=== PATIENT | female | born 1935 | race Caucasian/White ===

== ENCOUNTER → 2018-01-14 | Outpatient (CLI) | payer MEDICARE, OTHER ==
[~2018-01-14] MED LIST: ALIGN10.5 MG PO; AMARYL2 M1 PO; BENAZEPRIL HCL20 MG PO; CHLORTHALIDONE25 MG PO; CO Q-1010 MG PO; COQ-10100 MG PO; DICYCLOMINE HCL10 MG PO; ELIQUIS5 MG PO; ERYTHROMYCIN250 M1 PO; ESTRADIOL 1 MG T1 M1 PO; GLUCAGON EMERGEN1 MG IM; LOMOTIL TABLET1 EACH PO; MAGOX 400400 MG PO; METFORMIN HCL500 MG PO; NEPHROCAPS SOFT1 CAP PO; NORCO 5-325 TA1 EAC1 PO; NORVASC5 MG PO; OMEPRAZOLE40 MG PO; PIOGLITAZONE15 MG PO; PRAVACHOL20 MG PO; PREDNISOLONE 5 M5 M1 PO; PREDNISONE 5 MG5 M1 PO; PREDNISONE 5 MG5 MG PO; PROTONIX40 M1 PO; REFRESH OPTIVE15 ML OTIC; SYNTHROID75 MCG PO; TRAMADOL 50 MG50 MG PO; VIT B; VITAMIN B-12500 MCG PO; VITAMIN D3400 UNIT PO; XANAX 0.25 MG0.25 MG PO
== END ==
LOC: M.NUC 11:41
DX: K31.84 Gastroparesis (principal); R14.0 Abdominal distension (gaseous); R68.81 Early satiety

== ENCOUNTER → 2018-01-20 | Outpatient (CLI) | payer MEDICARE, OTHER | LOC: M.MRI 13:01 | DX: S43.401A Unspecified sprain of right shoulder joint, initial encounter (principal); M25.511 Pain in right shoulder; M19.011 Primary osteoarthritis, right shoulder; X58.XXXA Exposure to other specified factors, initial encounter; Y93.89 Activity, other specified; Y92.89 Other specified places as the place of occurrence of the external cause; Y99.8 Other external cause status ==

== ENCOUNTER 2018-02-04 15:53 | Inpatient (IN) | payer MEDICARE, OTHER ==
[~2018-02-04] VITALS: Ht 162.6 cm; Wt 98.0 kg
[~2018-02-04 15:53] MED LIST changes: -ALIGN10.5 MG PO; -CHLORTHALIDONE25 MG PO; -COQ-10100 MG PO; -DICYCLOMINE HCL10 MG PO; -ERYTHROMYCIN250 M1 PO; -GLUCAGON EMERGEN1 MG IM; -LOMOTIL TABLET1 EACH PO; -NEPHROCAPS SOFT1 CAP PO; -PIOGLITAZONE15 MG PO; -PROTONIX40 M1 PO; -REFRESH OPTIVE15 ML OTIC; -VITAMIN B-12500 MCG PO; -VITAMIN D3400 UNIT PO
[2018-02-04 15:55] VITALS: BP 130/57
[2018-02-04 16:28] LABS: HEMATOCRIT 28.1 % (37.0-47.0); HEMOGLOBIN 9.5 gm/dL (12.0-15.0); MCH 29.5 pg (26.0-34.0); MCHC 33.6 g/dL (28.0-37.0); MCV 87.6 fL (80.0-100.0); MPV 8.5 fl. (7.2-11.1); NUCLEATED RBCS 0 /100WBC; PLATELET COUNT* 223 thou/uL (150-400); RBC 3.21 mil/uL (4.20-5.00); RDW-CV 13.4 % (10.5-14.5); WBC 6.8 thou/uL (4.0-11.0)
[2018-02-04] MEDS ORDERED: PROTONIX40 M1 PO (16:28)
[2018-02-04] MEDS ORDERED: PIOGLITAZONE15 MG PO (16:29)
[2018-02-04] MEDS ORDERED: CHLORTHALIDONE25 MG PO (16:29)
[2018-02-04] MEDS ORDERED: LOMOTIL TABLET1 EACH PO (16:30)
[2018-02-04] MEDS ORDERED: VITAMIN B-12500 MCG PO (16:33)
[2018-02-04] MEDS ORDERED: VITAMIN D3400 UNIT PO (16:33)
[2018-02-04] MEDS ORDERED: COQ-10100 MG PO (16:34)
[2018-02-04] MEDS ORDERED: NEPHROCAPS SOFT1 CAP PO (16:34)
[2018-02-04] MEDS ORDERED: ALIGN10.5 MG PO (16:34)
[2018-02-04] MEDS ORDERED: REFRESH OPTIVE15 ML OTIC (16:35)
[2018-02-04] MEDS ORDERED: DICYCLOMINE HCL10 MG PO (16:35)
[2018-02-04 16:47] LABS: ANION GAP 5 mmol/L (7-16); BUN 25 mg/dL (7-18); CALCIUM 8.1 mg/dL (8.5-10.1); CHLORIDE 102 mmol/L (98-107); CO2 34 mmol/L (21-32); CREATININE 1.3 mg/dL (0.6-1.3); GLUCOSE 86 mg/dL (70-99); POTASSIUM 3.1 mmol/L (3.5-5.1); SODIUM 141 mmol/L (136-145)
[2018-02-04 16:54] LABS: ALBUMIN 2.7 g/dL (3.4-5.0); ALKALINE PHOSPHATASE 52 U/L (46-116); MAGNESIUM 1.6 mg/dL (1.8-2.4); SGOT 19 U/L (15-37); SGPT 15 U/L (30-65); TOTAL BILIRUBIN 0.3 mg/dL (<0.1-1.0); TROPONIN-I LEVEL <0.06 ng/mL (<0.06)
[2018-02-04 16:56] LABS: BE 2.1 mmol/L (-2 to +3); PCO2 43.5 mmHg (35.0-45.0); PO2 98.3 mmHg (75.0-100.0)
[2018-02-04 17:01] LABS: ABSOLUTE LYMPHOCYTES 0.5 thou/uL (0.8-5.3); ABSOLUTE MONOCYTES 0.5 thou/uL (0.0-1.2); ABSOLUTE NEUTROPHILS 5.8 thou/uL (1.6-8.1)
[2018-02-04 17:03] LABS: PLATELET ESTIMATE ADEQUATE
[2018-02-04 20:35] VITALS: BP 137/90
[2018-02-04 20:50] VITALS: BP 127/55
[2018-02-04 23:48] VITALS: BP 123/55
[2018-02-05 02:52] LABS: URINE BILIRUBIN NEGATIVE (Negative); URINE BLOOD 1+ (Negative); URINE CLARITY CLEAR; URINE COLOR YELLOW; URINE GLUCOSE-RANDOM NEGATIVE (Negative); URINE KETONES NEGATIVE (Negative); URINE LEUKOCYTES-REFLEX NEGATIVE (Negative); URINE NITRITE-REFLEX NEGATIVE (Negative); URINE PROTEIN NEGATIVE (Negative); URINE SPECIFIC GRAVITY 1.025 (1.005-1.030); URINE UROBILINOGEN 0.2 E.U./dl (0.2-1.0)
[2018-02-05 03:12] LABS: BACTERIA-REFLEX 1-9 Few /HPF (None Seen); HYALINE CASTS 0-3 Few /LPF (None Seen); SQUAMOUS 4-10 Moderate /LPF (0-3); URINE RBC 0-2 Rare /HPF (0-2); URINE WBC-REFLEX 0-5 Rare /HPF (0-5)
[2018-02-05 03:13] LABS: CRYSTALS None Seen /LPF (None Seen)
--- NOTE | 2018-02-05 03:34 | NUR ---
PT ADMIT TO ROOM 202 AT 2049. PT ALERT ORIENTED. BLOOD GLUCOSE HAS BEEN LOW WITH 30-67. D10 INFUSING AT 100MLS/HR. D50 GIVEN 3 TIMES. PT ENCOURAGED TO EAT. TELEMETRY SHOWS A FIB. R ARM IN SLING FROM PREVIOUS SURGERY ON 01/31/18. R SHOULDER WITH 3 SM SURGICAL INCISIONS COVERED WITH 3 SM BANDAIDS. URINE COLLECTED AND SENT TO LAB. TRAMADOL GIVEN ONCE FOR R SHOULDER PAIN. ZOFRAN GIVEN ONCE FOR NAUSIA. WILL CONTINUE TO MONITOR.
[2018-02-05 04:00] VITALS: BP 129/59
[2018-02-05 05:09] LABS: CALCIUM 7.9 mg/dL (8.5-10.1); CREATININE 1.2 mg/dL (0.6-1.3); POTASSIUM 3.7 mmol/L (3.5-5.1)
[2018-02-05 05:39] LABS: MAGNESIUM 1.1 mg/dL (1.8-2.4)
[2018-02-05 05:42] LABS: POTASSIUM 2.5 mmol/L (3.5-5.1)
[2018-02-05 06:49] LABS: MAGNESIUM 1.4 mg/dL (1.8-2.4)
[2018-02-05 06:55] LABS: POTASSIUM 4.1 mmol/L (3.5-5.1)
[2018-02-05 08:22] VITALS: BP 115/58
--- NOTE | 2018-02-05 09:12 | NUR ---
ASSUMED CARE OF PT THIS AM AROUND 0715- MEDICAL TECHNOLOGIST BLOOD BANK IN PLACE ORDERED, TRACING A- FIB, RATE CONTROLLED- BS REPORTED TO BE UNSTABLE THROUGHOUT NIGHT WITH MULTIPLE D5 IV PUSH REQUIRED- UPON ASSESSMENT PT NOTED TO BE A&O X4, FUSSY- CONTINENT OF BOWEL AND BLADDER-SBA WITH TRANSFERS- LCTA, RESP EVEN AND UN-LABORED- VSS, O2 SAT 100% ON RA- ABDOMEN SOFT/OBESE/NON-TENDER, BS X4 QUADS-LAST BM REPORTED 02/04/18- BS THIS AM NOTED TO BE 39, I AMP D5 GIVEN AT 0745 WITH JUICE AND GRAM CRACKERS- BS RECHECK AT 0830 NOTED TO BE IMPROVED AT 81- EDUCATION GIVEN TO PT ABOUT NEEDING TO INCREASE PO INTAKE, PT STATESHER BELLY IS UPSET AND SHE JUST IS NOT HUNGARY- NOTIFIED, ORDERS NOTED, CLARIFIED AND STARTED OF IVF OF DEX 10% WITH 1/2 NS WITH 10 MEQ OF K+ RUNNING AT 150ML/HOUR- IV NOTED TO LEFT WRIST INTACT- MG 1.4 AND CURRENTLY BEING REPLACED PER PROTOCOL- PT RATES PAIN 5/10 TO RIGHT SHOULDER, INCISSIONS C/D/I WITH SLING IN PLACE R/T RECENT SURG INDICATED- PAIN MEDICATIONS INDICATED- CALL LIGHT AND PERSONAL BELONGINGS WITH IN REACH- HOURLY ROUNDS IN PLACE R/T SAFETY/NEEDS- ALL NEEDS MET AT THIS TIME-[facility]
[2018-02-05 12:14] VITALS: BP 138/60
--- NOTE | 2018-02-05 13:44 | NUR ---
Nutrition: Consult received for "25# wt loss in one yr." Pt stated she weighed 230# before. Currently, usual wt is 204#, she stated. She stated she lost the weight when she was in pain for 9 months (shoulder repair) and she didn't have an appetite d/t pain. She has stopped losing wt and actually gained about 5# back over the past year. She drinks Ensure at home on occ, but refuses one here. She is hopeful to discharge tomorrow. She has no bottom teeth and has difficulty chewing hard foods. She refused Mech-altered diet, but I did give her a CHO menu and explained the alternative ordering to her. Pt pleased with this. Low nutrition risk.
--- NOTE | 2018-02-05 14:34 | NUR ---
Pt is A&O. Resides at home with her . Normally independent with ADLs, Pt continues to cook and drive. 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 Pt recently had surgery for a torn rotator cuff and bicept tear. Hx of [facility]. Hx of [facility] . Pt plans to begin outpt therapy at [facility] in in a few weeks. Supportive family. CM faxed Glucagon Emergency Kit order to Pt's pharmacy, [place] [phone], cost will be $31, updated Pt and she is in agreement with filling script. Following.
[2018-02-05 15:49] VITALS: BP 135/46
--- NOTE | 2018-02-05 16:18 | EKG ---
[place] [address] ELECTROCARDIOGRAM REPORT Name: CLIFTON SOTO Room: [address] IN [facility].#: [id number] Admission: 02/04/18 Attend Phys: ePng Epstein Discharge: Date of : 39 Report #: [id number] THIS REPORT FOR: //name// [facility] ED Test Date: 2018-02-04 Test Time: 16:06:11 Pat Name: CLIFTON SOTO Department: Room: Gender: F Top Precipitator Operator Helper: Jose Manuel DIAS : 1935 Requested By: Jasmine Serna Order Number: [id number] MD: Kb Guido Measurements Intervals [place] Rate: 78 P: DE: QRS: 22 QRSD: 137 T: 32 QT: 441 QTc: 503 Interpretive Statements Atrial fibrillation Nonspecific intraventricular conduction delay Compared to ECG 05/02/2009 11:40:47 Intraventricular conduction delay now present Sinus rhythm no longer present Electronically Signed On 02-05-2018 16:18:39 CDT by Kb Guido [email or web address] <ELECTRONICALLY SIGNED> By: Kb Guido MD, [facility] 02/05/18 1618 1606 160 Kb Guido MD, [facility] /EPI
--- NOTE | 2018-02-05 18:59 | NUR ---
PT CURRENLTY RESTING IN BED- FURNACE SETTER IN PLACE ORDERED, TRACING A-FIB- IV TO LEFT WRIST INTACT WITH IVF INFUSING PRESCIBED- MG REPLACED PER PROTOCOL X2 WITH REDRAW REPORTED AT 1.4; CONTINUED REPLACEMENT TO FOLLOW- BS LOW IN AM WITH REQUIRED D2 IV PUSH X2- PO INTAK ENCURAGED AND PUSHED THIS SHIFT, WITH FAIR INTAKE AFTERNOON TO NOW BS MORE STABLE WITH LAST BS REPORTED AT 113- TRAMADOL GIVEN X1 THIS SHIFT AT 1633, PT REPORTS MEDICATION TO BE EFFECTIVE- ALL NEEDS MET AT THIS TIME- CALL LIGHT AND PERSONAL BELONGINGS WITH IN REACH- [facility]
[2018-02-05 20:00] VITALS: BP 171/71
[2018-02-06] VITALS: BP 152/69
--- NOTE | 2018-02-06 01:07 | NUR ---
TOOK PT INTO CARE AT 1930. ASSESSMENT COMPLETED CHARTED. MONITORING GLUCOSE LEVELS Q2HRS, RUNNING FLUIDS AT 150 IN THE LEFT HAND. C/O PAIN IN RIGHT ELBOW/ ARM FROM RECENT SURGERY AND GIVEN PRN DIRECTED. GAVE HER AN ICE PACK AND HAS HELPED PT SLEEP. PT IS UP WITH ASSIST DUE TO RIGHT ARM AND IV POLE. WILL CONTINUE WITH PLAN OF CARE.
[2018-02-06 04:00] VITALS: BP 135/69
[2018-02-06 07:54] VITALS: BP 135/57
--- NOTE | 2018-02-06 08:52 | NUR ---
ASSUMED CARE OF PT THIS AM AROUND 0715- ACCOUNTS MANAGER IN PLACE ORDERED, TRACING A-FIB- UPON ASSESSMENT PT NOTED TO BE RESTING IN BED- PT A&O X4- CONTINENT OF BOWEL AND BLADDER- SBA WITH TRANSFERS- LCTA, RESP EVEN AND UN-LABORED- VSS, O2 SAT 97% ON RA- ABDOMEN SOFT/ROUND/NON-TENDER, LAST BM REPORTED 02/05/17- PT NOTED TO BE IN BETTER SPIRTS THIS AND REPORTS TO BE FEELING BETTER- BS STABLE AM BS NOTED AT 187- IV NOTED TO LEFT WRIST INTACT WITH IVF INFUSING PRESCIBED- PT UP TO BED SIDE CHAIR THIS AM WITH BREAKFAST, GOOD PO INTAKE NOTED- PTN RATES PAIN 2/10 TO RIGHT SHOULDER, NO NEED FOR PAIN MAEDICATIONS AT THIS TIME-CALL LIGHT AND PERSOANL BELONGINGS WITH IN REACH- HOURLY ROUNDS IN PLACE R/T SAFETY/NEEDS- ALL NEEDS MET AT THIS TIME-[facility]
[2018-02-06 11:45] VITALS: BP 137/65
[2018-02-06] MEDS ORDERED: GLUCAGON EMERGEN1 MG IM (13:56)
[2018-02-06 13:58] VITALS: BP 137/65
--- NOTE | 2018-02-06 14:32 | NUR ---
ORDERS RECIEVED THIS SHIFT FOR OKAY TO D/C HOME THIS SHIFT PER -IV TO LEFT WRIST D/C'D ALONG WITH ACUTE COORDINATOR PRIOR TO D/C- COMMUNICATION GIVEN REGUARDING MONITORING GLIMEPIRIDE AND ACTOS BEING HELD TILL FOLLOW UP WITH PCP, PT COMMUNICATED UNDERSTANDING- D/C TEACHING/EDUCATION GIVEN TO PT AND PRIOR TO D/C WITH ALL QUESTIONS AND CONCERNSA ADDRESSED- WRITTEN EDUCATION AND SCRIPT PROVIDED TO PT AT TIME OF D/C- BELONGINGS PACKED AND ACCOUNTED FOR PER PT AND AND SENT HOME AT TIME OF D/C- PT ESCORTED PER TECH VIA W/C TO VEHICLE WITH BELONGINGS, AT SIDE AT 1440 THIS SHIFT- NO PROBLEMS TO NOTE AT TIME OF D/C
== END 2018-02-06 14:40 | disposition home or self-care (01) | DRG 682 ==
LOC: M.ERS 15:53 → M.2W 18:51 → M.TBA-ER 18:51 → M.2W 20:48
PROVIDERS: Personal Emergency Response Attendant; ADMIT Internal Medicine
DX: N17.0 Acute kidney failure with tubular necrosis (principal); G93.41 Metabolic encephalopathy; E11.649 Type 2 diabetes mellitus with hypoglycemia without coma; Z96.651 Presence of right artificial knee joint; I48.91 Unspecified atrial fibrillation; K59.00 Constipation, unspecified; I10 Essential (primary) hypertension; Z79.4 Long term (current) use of insulin; Z88.6 Allergy status to analgesic agent; Z88.8 Allergy status to other drugs, medicaments and biological substances; Z90.49 Acquired absence of other specified parts of digestive tract

== ENCOUNTER 2018-02-20 10:53 | Inpatient (IN) | payer MEDICARE, OTHER ==
[~2018-02-20] VITALS: Ht 162.6 cm; Wt 91.2 kg
--- NOTE | ~2018-02-20 | PROC ---
[address] [address] PROCEDURE REPORT Name: CLIFTON SOTO Room: [address]#: [id number] Admission: 02/20/18 Attend Phys: Peng Epstein Discharge: 02/22/18 Date of : 39 Report #: [id number] THIS REPORT FOR: //name// For GI report, please see the Provation report in Perceptive 7 content. By: 1004Medical Records Staff DRE /RODOLFO
[~2018-02-20 10:53] MED LIST changes: +ALIGN10.5 MG PO; +CHLORTHALIDONE25 MG PO; +COQ-10100 MG PO; +DICYCLOMINE HCL10 MG PO; +GLUCAGON EMERGEN1 MG IM; +LOMOTIL TABLET1 EACH PO; +NEPHROCAPS SOFT1 CAP PO; +PIOGLITAZONE15 MG PO; +PROTONIX40 M1 PO; +REFRESH OPTIVE15 ML OTIC; +VITAMIN B-12500 MCG PO; +VITAMIN D3400 UNIT PO
[2018-02-20 11:00] VITALS: BP 134/56
[2018-02-20 12:03] LABS: ABSOLUTE BASOPHILS 0.1 thou/uL (0.0-0.2); ABSOLUTE EOSINOPHILS 0.1 thou/uL (0.0-0.7); ABSOLUTE LYMPHOCYTES 1.1 thou/uL (0.8-5.3); ABSOLUTE MONOCYTES 0.6 thou/uL (0.0-1.2); ABSOLUTE NEUTROPHILS 4.6 thou/uL (1.6-8.1); BASOPHILS 0.9 %; EOSINOPHILS 1.6 %; HEMOGLOBIN 10.6 gm/dL (12.0-15.0); LYMPHOCYTES 17.2 %; MCH 28.2 pg (26.0-34.0); MCV 85.2 fL (80.0-100.0); MPV 7.6 fl. (7.2-11.1); NUCLEATED RBCS 0 /100WBC; PLATELET COUNT* 364 thou/uL (150-400); POLYS 70.3 %; RBC 3.75 mil/uL (4.20-5.00); RDW-CV 13.5 % (10.5-14.5); WBC 6.5 thou/uL (4.0-11.0)
[2018-02-20 12:12] LABS: ANION GAP 6 mmol/L (7-16); BUN 18 mg/dL (7-18); CALCIUM 9.2 mg/dL (8.5-10.1); CHLORIDE 97 mmol/L (98-107); CO2 36 mmol/L (21-32); CREATININE 1.5 mg/dL (0.6-1.3); GLUCOSE 151 mg/dL (70-99); POTASSIUM 3.7 mmol/L (3.5-5.1); SODIUM 139 mmol/L (136-145)
[2018-02-20 12:14] LABS: INR 1.2; PROTIME 11.4 Seconds (9.20-11.50)
[2018-02-20 12:21] LABS: ALBUMIN 3.4 g/dL (3.4-5.0); ALKALINE PHOSPHATASE 80 U/L (46-116); SGOT 21 U/L (15-37); SGPT 14 U/L (30-65); TOTAL BILIRUBIN 0.3 mg/dL (<0.1-1.0); TOTAL PROTEIN 7.3 g/dL (6.4-8.2); TROPONIN-I LEVEL <0.06 ng/mL (<0.06)
--- NOTE | 2018-02-20 15:17 | EKG ---
[place] [address] ELECTROCARDIOGRAM REPORT Name: CLIFTON SOTO Room: [place] [address] ADM IN [facility].#: [id number] Admission: 02/20/18 Attend Phys: Peng Epstein Discharge: Date of : 39 Report #: [id number] THIS REPORT FOR: //name// [facility] ED Test Date: 2018-02-20 Test Time: 12:58:25 Pat Name: CLIFTON SOTO Department: Room: Gender: It Auditor: Jose Manuel DIAS : 1935 Requested By: Daniel Yepez Order Number: [id number] MD: Kevin Sandoval Measurements Intervals [place] Rate: 96 P: [place]: QRS: 13 QRSD: 98 T: 33 QT: 379 QTc: 479 Interpretive Statements Atrial fibrillation Consider anterior infarct Baseline wander in lead(s) I,III,aVL Compared to ECG 02/04/2018 16:06:11 Myocardial infarct finding now present Intraventricular conduction delay no longer present Electronically Signed On 02-20-2018 15:17:48 CDT by Kevin Sandoval [email or web address] <ELECTRONICALLY SIGNED> By: Kevin Sandoval MD, [facility] 02/20/18 1517 1258 1258 Kevin Sandoval MD, [facility] /EPI
[2018-02-20 16:55] VITALS: BP 155/69
[2018-02-20 17:07] VITALS: BP 154/77
[2018-02-20 21:37] VITALS: BP 133/59
[2018-02-21 00:30] VITALS: BP 133/59
[2018-02-21 07:46] VITALS: BP 136/61
[2018-02-21 11:36] LABS: CALCIUM 8.4 mg/dL (8.5-10.1); CREATININE 1.2 mg/dL (0.6-1.3); POTASSIUM 4.2 mmol/L (3.5-5.1)
[2018-02-21 15:50] LABS: URINE BILIRUBIN NEGATIVE (Negative); URINE BLOOD NEGATIVE (Negative); URINE CLARITY CLEAR; URINE COLOR YELLOW; URINE GLUCOSE-RANDOM NEGATIVE (Negative); URINE KETONES NEGATIVE (Negative); URINE LEUKOCYTES NEGATIVE (Negative); URINE NITRITE NEGATIVE (Negative); URINE PROTEIN NEGATIVE (Negative); URINE UROBILINOGEN 0.2 E.U./dl (0.2-1.0)
[2018-02-21 19:00] VITALS: BP 135/66
[2018-02-22] VITALS: BP 153/72
[2018-02-22] MEDS ORDERED: ERYTHROMYCIN250 M1 PO (07:35)
[2018-02-22] MEDS ORDERED: PROTONIX40 M1 PO (07:35)
[2018-02-22 08:20] VITALS: BP 143/66
[2018-02-22 12:25] VITALS: BP 143/66
--- NOTE | 2018-02-23 10:00 | CON ---
[address] [address] CONSULTATION Name: CLIFTON SOTO Room: [address] IN [facility].#: [id number] Admission: 02/20/18 Attend Phys: Peng Epstein Discharge: 02/22/18 Date of : 39 Report #: [id number] THIS REPORT FOR: //name// CC: Mitch Hazel DICTATED BY: Tamara Fierro [facility] DATE OF SERVICE: 02/21/2018 Please note at the time of this dictation, the patient was seen and physically examined by myself. REASON FOR CONSULTATION: Abdominal pain, bloating, nausea, and dysphagia. HISTORY OF PRESENT ILLNESS: This is an 82-year-old female who presents to the Emergency Room with chief complaint of abdominal pain, nausea, bloating, early satiety for the last few weeks with worsening of her dysphagia and ongoing nausea. The patient saw Dr. Nelson in clinic at the end of January. She was started on some Reglan and Zofran. The patient states she feels that this has not helped her at all and that she continues to have difficulty swallowing solid foods at this time. The patient underwent an EGD and colonoscopy back in April of 2017 showing grade B esophagitis, Schatzki ring, dilated at 54 and 57. Colonoscopy showed some diverticulum and some internal nonbleeding hemorrhoids that were severe. ALLERGIES: KEFLEX, AUGMENTIN, OXYCODONE, CEPHALEXIN AND METRONIDAZOLE. MEDICATIONS: From home include Synthroid, Xanax, Eliquis, Ultram, Protonix, Glucophage, Amaryl, Pravachol, lovastatin, esterase, Actos, chlorthalidone, Lomotil, vitamin B12, vitamin D, folic acid, CoQ10, Align, Refresh, dicyclomine and glucagon emergency. PAST MEDICAL HISTORY: Atrial fibrillation, type 2 diabetes, hypertension. PAST SURGICAL HISTORY: Tonsillectomy, appendectomy, total abdominal hysterectomy, arthroscopic surgery, bone spurs in her neck, right knee replacement. FAMILY HISTORY: Noncontributory. SOCIAL HISTORY: Lives with her . Denies any alcohol, tobacco or illegal drug use. REVIEW OF SYSTEMS: Twelve-point review [place] [address] CONSULTATION Name: CLIFTON SOTO Room: [address]#: [id number] Admission: 02/20/18 Attend Phys: Peng Epstein Discharge: 02/22/18 Date of : 39 Report #: [id number] except what is mentioned in the HPI. PHYSICAL EXAMINATION: VITAL SIGNS: Temperature 36.8, pulse 85, respirations 12, blood pressure 139/61. HEART: Irregular rate and rhythm. LUNGS: Clear, but diminished. ABDOMEN: Soft, positive bowel sounds in all 4 quadrants with no masses or tenderness noted. LABORATORY DATA: Hemoglobin 10.6, hematocrit 32, white count is 6.5, platelets 364. PT is 11.4, INR is 1.2. Sodium 140, potassium 4.2, chloride 102, CO2 of 30, BUN is 13, creatinine 1.2, GFR is 43 and glucose is 162. CT of the abdomen and pelvis on admission was essentially negative. IMPRESSION: 1. Dysphagia. 2. Abdominal pain. 3. Nausea and vomiting. 4. Anticoagulant therapy, Eliquis for AFib, last dose was Saturday evening. PLAN: 1. EGD today with Dr. Nelson. 2. Further recommendations to be made once the procedure has been performed. Thank you for allowing us to participate in this patient's care. Please do not hesitate to call with any questions in regard to this consult. ADDENDUM The patient with history of AFib who is on Eliquis and presented with symptoms of nausea, vomiting and abdominal pain. She also has been complaining of dysphagia. She has been taking pain medications for recent shoulder surgery, which we believe had affected her gastric emptying. I believe that her nausea and vomiting is associated with the same. Since she has dysphagia and dyspepsia, we will perform our upper endoscopy and may consider dilation of her esophagus. <ELECTRONICALLY SIGNED> By: Michelet Nelson MD 02/23/18 1000 1444 [id number] Nelson MD /nt
== END 2018-02-22 15:25 | disposition home or self-care (01) | DRG 73 ==
LOC: M.ERS 10:53 → M.TBA-ER 12:26 → M.ERS 12:26 → M.TBA-ER 13:07 → M.3W 13:07
PROVIDERS: Family Medicine; Physician Assistant; ADMIT Internal Medicine
PROC: 0D738ZZ Dilation of Lower Esophagus, Via Natural or Artificial Opening Endoscopic (ICD-10-PCS; principal; 2018-02-21)
DX: E11.43 Type 2 diabetes mellitus with diabetic autonomic (poly)neuropathy (principal); N17.0 Acute kidney failure with tubular necrosis; D68.9 Coagulation defect, unspecified; D68.59 Other primary thrombophilia; K31.84 Gastroparesis; I48.91 Unspecified atrial fibrillation; K21.0 Gastro-esophageal reflux disease with esophagitis; E78.5 Hyperlipidemia, unspecified; D64.9 Anemia, unspecified; E66.9 Obesity, unspecified; I10 Essential (primary) hypertension; E86.0 Dehydration; N28.89 Other specified disorders of kidney and ureter; K44.9 Diaphragmatic hernia without obstruction or gangrene; K22.2 Esophageal obstruction; Z96.651 Presence of right artificial knee joint; Z68.34 Body mass index [BMI] 34.0-34.9, adult; Z90.710 Acquired absence of both cervix and uterus; Z90.49 Acquired absence of other specified parts of digestive tract; Z79.4 Long term (current) use of insulin; Z98.890 Other specified postprocedural states; Z79.2 Long term (current) use of antibiotics; Z79.899 Other long term (current) drug therapy; Z88.6 Allergy status to analgesic agent; Z88.1 Allergy status to other antibiotic agents; Z88.8 Allergy status to other drugs, medicaments and biological substances

== ENCOUNTER 2019-01-11 23:07 | Inpatient (IN) | payer MEDICARE, OTHER ==
[~2019-01-11] VITALS: Ht 162.6 cm; Wt 95.3 kg
--- NOTE | ~2019-01-11 | CON ---
[address] [address] CONSULTATION Name: CLIFTON SOTO Room: [address] IN [facility].#: [id number] Admission: 01/12/19 Attend Phys: Lj Garcia MD Discharge: 01/13/19 Date of : 39 Report #: [id number] THIS REPORT FOR: //name// CC: Lj Pal MD DICTATED BY: Tamara Fierro [facility] DATE OF SERVICE: 01/13/2019 REASON FOR CONSULTATION: Anemia. Please note at the time of this dictation, the patient was seen and physically examined by myself. HISTORY OF PRESENT ILLNESS: This is an 83-year-old female who presented to the Emergency Room with complaints of whole body rushing "sensations" intermittently the day of presentation. She became very anxious and felt a little lightheaded, making it difficult to move around and when she took her blood pressure during one of these abnormal sensations, she noted that her systolic was over 200 prompting her to come in for further evaluation. The patient does see Dr. Edouard, who is her photo stylist. She has a longstanding history of chronic atrial fibrillation and on Eliquis. The patient was last seen by us in 03/2018. She had grade A esophagitis, Schatzki's ring that was dilated and at that time, her hemoglobin was 10.6. In talking with the patient, she has had chronic anemia since 2003 when she had her knee surgeries done. She states she has been intolerable to oral iron, but has never had any complaints of being increased fatigue, shortness of breath or any chest pain with this hemoglobin. She denies any overt bleeding either. She states her bowels move daily to every other day, soft and formed with no evidence of any bright red blood or any melena. The patient did have a colonoscopy with Dr. Perez back in 2014 that showed nonbleeding internal hemorrhoids, diverticulosis in the sigmoid colon, otherwise very torturous. The patient since that time when we saw her in 03/2018, she has been following Dr. Yu at [facility] which she can continue with their care upon discharge for followup. ALLERGIES: CEPHALOSPORINS, OXYCODONE, KEFLEX, AUGMENTIN, AND METRONIDAZOLE. MEDICATIONS: From home include Synthroid, Glucophage, Pravachol, Lotensin, Xanax, Actos, chlorthalidone, Lomotil, vitamin B, vitamin D, Nephrocaps, CoQ10, dicyclomine, Eliquis, Ultram, ranitidine, prednisone, and Zofran. PAST MEDICAL HISTORY: Significant for hypertension, hyperlipidemia, chronic AFib, type 2 [place] [address] CONSULTATION Name: CLIFTON SOTO Room: [address] IN M.R.#: [id number] Admission: 01/12/19 Attend Phys: Lj Garcia MD Discharge: 01/13/19 Date of : 39 Report #: [id number] PAST SURGICAL HISTORY: Appendectomy, bilateral knee replacements, bone spurs in her neck, cholecystectomy, rotator cuff repair and hysterectomy. FAMILY HISTORY: Noncontributory. SOCIAL HISTORY: Lives with her . Denies any alcohol, tobacco or illegal drug use. REVIEW OF SYSTEMS: Twelve-point review of systems is essentially negative except what is mentioned in the HPI. PHYSICAL EXAMINATION: VITAL SIGNS: Temperature 36.8, pulse 50, respirations 15, blood pressure 138/61. HEART: Regular rate and rhythm. LUNGS: Clear. ABDOMEN: Soft, positive bowel sounds in all 4 quadrants with no masses or tenderness noted. LABORATORY DATA: Hemoglobin on admission 10.9. She is 10.1 this morning, white count is 6, platelets 162. BUN is 35, creatinine 1.5, GFR is 33. Iron is 36, B12 is 1334, TIBC is 306, percentage sat is 12. Echo done earlier showed 60% EF. IMPRESSION: 1. Anemia, chronic in nature secondary to her previous gastric surgeries, diabetes and chronic kidney disease. 2. Anticoagulant therapy, atrial fibrillation, on Eliquis. 3. History of gastroparesis diet controlled. 4. Hypertension. 5. Diabetes. 6. Chronic kidney disease. PLAN: 1. No plans for any endoscopy studies at this time. She would like to follow up with [facility] as an outpatient. 2. May consider iron infusions in the future since she is intolerable to oral. 3. The patient is getting a stress test later today. 4. Further recommendations to be made after Dr. Alicia sees the patient later today. [address] [address] CONSULTATION Name: CLIFTON SOTO Room: [address] IN ..#: [id number] Admission: 01/12/19 Attend Phys: Lj Garcia MD Discharge: 01/13/19 Date of : 39 Report #: [id number] Thank you for allowing us to participate in this patient's care. Please do not hesitate to call with any questions in regard to this consult. By: 1017 0329Osbaldo Alicia DO /amara
--- NOTE | ~2019-01-11 | CON ---
[address] [address] CONSULTATION Name: CLIFTON SOTO Room: [address] IN M.R.#: [id number] Admission: 01/12/19 Attend Phys: Lj Garcia MD Discharge: 01/13/19 Date of : 39 Report #: [id number] THIS REPORT FOR: //name// CC: Lj Garcia MD [facility] Mitch Pal MD DATE OF SERVICE: 01/13/2019 ADDENDUM GASTROINTESTINAL CONSULTATION: . REFERRING PHYSICIAN: Lj Garcia MD. While our nurse practitioner was able to see the patient, the patient was discharged to home before I could see her today. I would, however, suggest that she and her follow up with [facility] for all their needs. I have no plans for any further followup with us upon discharge. By: 1352 0113Gjean marie Alicia DO /amara
[~2019-01-11 23:07] MED LIST changes: -ALIGN10.5 MG PO; +ERYTHROMYCIN250 M1 PO
[2019-01-11 23:17] VITALS: BP 206/86
[2019-01-11] MEDS ORDERED: RANITIDINE 150150 M1 PO (23:29)
[2019-01-11] MEDS ORDERED: PREDNISONE 5 MG5 M1 PO (23:32)
[2019-01-11] MEDS ORDERED: ONDANSETRON HCL4 M2 PO (23:35)
[2019-01-11 23:39] LABS: ABSOLUTE LYMPHOCYTES 1.2 thou/uL (0.8-5.3); HEMOGLOBIN 10.9 gm/dL (12.0-15.0); MCH 28.2 pg (26.0-34.0); MPV 7.9 fl. (7.2-11.1); NUCLEATED RBCS 0 /100WBC
[2019-01-11 23:44] LABS: ABSOLUTE EOSINOPHILS 0.1 thou/uL (0.0-0.7); ABSOLUTE MONOCYTES 0.5 thou/uL (0.0-1.2); BASOPHILS 0.5 %; EOSINOPHILS 1.8 %; LYMPHOCYTES 17.8 %; MCV 85.4 fL (80.0-100.0); MONOCYTES 7.1 %; PLATELET COUNT* 210 thou/uL (150-400); POLYS 72.8 %; RBC 3.87 mil/uL (4.20-5.00); RDW-CV 15.2 % (10.5-14.5); WBC 6.8 thou/uL (4.0-11.0)
[2019-01-11 23:53] LABS: APTT 29.9 Seconds (25.0-31.3); INR 1.1; PROTIME 11.5 Seconds (9.20-11.50)
[2019-01-11 23:57] LABS: ANION GAP 6 mmol/L (7-16); BUN 33 mg/dL (7-18); CALCIUM 8.9 mg/dL (8.5-10.1); CHLORIDE 105 mmol/L (98-107); CO2 32 mmol/L (21-32); CREATININE 1.4 mg/dL (0.6-1.3); GLUCOSE 150 mg/dL (70-99); SODIUM 143 mmol/L (136-145); TROPONIN-I LEVEL <0.06 ng/mL (<0.06)
[2019-01-12 00:05] LABS: ALBUMIN 3.7 g/dL (3.4-5.0); ALKALINE PHOSPHATASE 79 U/L (46-116); NT-PRO BRAIN NAT PEPTIDE 3320 pg/mL (<300); SGOT 15 U/L (15-37); SGPT 16 U/L (30-65); TOTAL BILIRUBIN 0.2 mg/dL (<0.1-1.0); TOTAL PROTEIN 7.4 g/dL (6.4-8.2)
[2019-01-12 02:32] VITALS: BP 190/63
[2019-01-12 03:00] VITALS: BP 151/69
[2019-01-12 08:00] VITALS: BP 145/78
[2019-01-12 12:14] VITALS: BP 138/80
--- NOTE | 2019-01-12 15:07 | 2DMMODE ---
[place] [address] 2 D/M-MODE ECHOCARDIOGRAM Name: CLIFTON SOTO Room: [address] IN [facility]#: [id number] Admission: 01/12/19 Attend Phys: Lj Garcia, Discharge: Date of : 39 Date of Service: 01/12/19 1506 Report #: [id number] THIS REPORT FOR: //name// APPROVED REPORT Study performed: 01/12/2019 10:06:59 EXAM: Comprehensive 2D, Doppler, and color-flow Echocardiogram Patient Location: In-Patient Room #: [facility] Status: routine BSA: 2.00 HR: 53 bpm BP: 151/69 mmHg Rhythm: NSR Other Information Study Quality: Good Indications Hypertension/HDD 2D Dimensions IVSd: 11.20 (7-11mm) LVOT Diam: 17.72 (18-24mm) LVDd: 46.51 mm PWd: 10.06 (7-11mm) Ascending Ao: 36.98 (22-36mm) LVDs: 28.08 (25-40mm) Aortic Root: 28.24 mm Volumes Left Atrial Volume (Systole) LA ESV Index: 39.10 mL/m2 Aortic Valve AoV Peak Remigio.: 1.29 m/s AO Peak Gr.: 6.63 mmHg LVOT Max P.65 mmHg AO Mean Gr.: 3.58 mmHg LVOT Mean P.89 mmHg LVOT Max V: 0.64 m/s AO V2 VTI: 27.16 cm LVOT Mean V: 0.44 m/s ENE (VTI): 1.56 cm2 LVOT V1 VTI: 17.18 cm TDI Medial E' Remigio.: 0.17 m/s Lateral E' Remigio.: 0.12 m/[place] [address] 2 D/M-MODE ECHOCARDIOGRAM Name: CLIFTON SOTO Room: [address] IN [facility]#: [id number] Admission: 01/12/19 Attend Phys: jL Garcia, Discharge: Date of : 39 Date of Service: 01/12/19 1506 Report #: [id number] Pulmonary Valve PV Peak Remigio.: 0.98 m/s PV Peak Gr.: 3.82 mmHg Tricuspid Valve RAP Estimate: 5.00 mmHg TR Peak Gr.: 40.26 mmHg RVSP: 45.00 mmHg PA Pressure: 45.00 mmHg Left Ventricle The left ventricle is normal size. There is normal LV segmental wall motion. There is normal left ventricular wall thickness. Left ventricular systolic function is normal. The left ventricular ejection fraction is within the normal range. LVEF is 60-65%. This study is not technically sufficient to allow evaluation of the LV diastolic function due to atrial fibrillation. Right Ventricle The right ventricle is normal size. The right ventricular systolic function is normal. Atria Left atrium is mildly dilated. Right atrium is dilated. Aortic Valve Mild aortic valve sclerosis. No aortic regurgitation is present. There is no aortic valvular stenosis. Mitral Valve There is mitral annular calcification. Mild mitral regurgitation. No evidence of mitral valve stenosis. Tricuspid Valve The tricuspid valve is normal in structure. Moderate tricuspid regurgitation estimated pa pressure 50 mm Hg Pulmonic Valve The pulmonary valve is normal in structure. Trace pulmonic regurgitation. Great Vessels The aortic root is normal in size. IVC is normal in size and collapses >50% with inspiration. Pericardium There [place] [address] 2 D/M-MODE ECHOCARDIOGRAM Name: CLIFTON SOTO Room: [address]#: [id number] Admission: 01/12/19 Attend Phys: Lj Garcia, Discharge: Date of : 39 Date of Service: 01/12/19 1506 Report #: [id number] <Conclusion> LVEF is 60-65%. Left atrium is mildly dilated. Mild mitral regurgitation. Mild aortic valve sclerosis. Moderate tricuspid regurgitation estimated pa pressure 50 mm Hg <ELECTRONICALLY SIGNED> By: Jeramie Rdz MD, FACC 01/12/19 1506 1506 1506 Jeramie Rdz MD, FAC /INF
[2019-01-12 15:24] VITALS: BP 184/78
[2019-01-12 20:00] VITALS: BP 164/67
[2019-01-13] VITALS: BP 174/79
[2019-01-13 04:00] VITALS: BP 121/53
[2019-01-13 04:57] LABS: HEMATOCRIT 29.9 % (37.0-47.0); HEMOGLOBIN 10.1 gm/dL (12.0-15.0); MCH 28.8 pg (26.0-34.0); MCHC 33.8 g/dL (28.0-37.0); MCV 85.1 fL (80.0-100.0); MPV 7.5 fl. (7.2-11.1); RBC 3.52 mil/uL (4.20-5.00); RDW-CV 14.6 % (10.5-14.5)
[2019-01-13 05:26] LABS: CALCIUM 9.3 mg/dL (8.5-10.1); CREATININE 1.5 mg/dL (0.6-1.3)
[2019-01-13 07:48] VITALS: BP 138/61
[2019-01-13] MEDS ORDERED: CLONIDINE0.1 PO (10:12)
[2019-01-13] MEDS ORDERED: PANTOPRAZOLE SO40 M1 PO (10:12)
[2019-01-13] MEDS ORDERED: ELIQUIS5 MG PO (10:12)
[2019-01-13] MEDS ORDERED: ZESTRIL20 MG PO (10:12)
--- NOTE | 2019-01-13 10:44 | EKG ---
[place] [address] ELECTROCARDIOGRAM REPORT Name: CLIFTON SOTO Room: [address] ADM IN M.R.#: [id number] Admission: 01/12/19 Attend Phys: Lj Garcia MD Discharge: Date of : 39 Report #: [id number] THIS REPORT FOR: //name// [facility] Test Date: 2019-01-13 Test Time: 08:33:04 Pat Name: CLIFTON SOTO Department: Room: [address] Gender: F Ortho Assistant: : 1935 Requested By: Jeramie Rdz Order Number: [id number] Reading MD: Kevin Sandoval Measurements Intervals [place] Rate: 49 P: [place]: QRS: 36 QRSD: 93 T: 47 QT: 454 QTc: 410 Interpretive Statements Atrial fibrillation Low voltage, extremity leads Compared to ECG 02/20/2018 12:58:25 Low QRS voltage now present Myocardial infarct finding no longer present Electronically Signed On 01-13-2019 10:44:21 CDT by Kevin Sandoval [email or web address] <ELECTRONICALLY SIGNED> By: Kevin Sandoval MD, [facility] 01/13/19 1044 0833 0833 Kevin Sandoval MD, [facility] /EPI
[2019-01-13] MEDS ORDERED: ALIGN10.5 MG PO (15:19)
[2019-01-13 15:26] VITALS: BP 138/61
--- NOTE | 2019-01-13 15:53 | CON ---
[address] [address] CONSULTATION Name: CLIFTON SOTO Room: [address] IN .R.#: [id number] Admission: 01/12/19 Attend Phys: Lj Garcia MD Discharge: Date of : 39 Report #: [id number] THIS REPORT FOR: //name// CC: Lj Pal DATE OF SERVICE: 01/12/2019 PRIMARY CARE PHYSICIAN: Mitch Pal MD. HISTORY OF PRESENT ILLNESS: The patient is an 83-year-old white female who I was asked to see in the hospital today because her blood pressure is elevated. The patient has an extensive past medical history. She has a history of permanent atrial fibrillation, has been followed by Dr. Edouard. She has been chronically anticoagulated with Eliquis. She has no history of bleeding problems. She apparently had a stress test in the past. She denies a history of myocardial infarction or chest pain. She is not very active because of her age and uses a walker. She states that several months ago, they told her to cut her benazepril in half. Yesterday, she felt somewhat lightheaded, took her blood pressure, it was 212/107. Her brought her to the Emergency Room. She was admitted. Recently, she has noticed some shortness of breath, but no palpitations, syncope or edema. She has had no vomiting, has had some loose stools. PAST MEDICAL HISTORY: She has had tonsillectomy, appendectomy, both knees have been replaced, shoulder surgery, cholecystectomy, hysterectomy, hypertension, diabetes. MEDICATIONS: On admission consisted of Synthroid, metformin, pravastatin, benazepril, Xanax, chlorthalidone, Eliquis, tramadol, ranitidine. ALLERGIES: SHE HAS AN INTOLERANCE TO KEFLEX, AUGMENTIN, OXYCODONE. FAMILY HISTORY: Significant for [place]'s. Her father had heart attack. SOCIAL HISTORY: She is . She and her does live in [place]. 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 REVIEW OF SYSTEMS: She has had no history of stroke. She has had a peptic ulcer. No asthma. She has chronic kidney disease. She has been anemic in the past. She has had esophagus dilated. She saw a counselor in the past for depression. No chronic skin condition. PHYSICAL EXAMINATION: GENERAL: Revealed a large, elderly female, lying in [place] [address] CONSULTATION Name: CLIFTON SOTO Room: [address] IN ..#: [id number] Admission: 01/12/19 Attend Phys: Lj Garcia MD Discharge: Date of : 39 Report #: [id number]. VITAL SIGNS: She had a blood pressure of 180/80, pulse 60. She is afebrile. HEENT: She is anicteric, conjunctiva pink. Mucous membranes appear dry. NECK: Veins nondistended. No carotid bruits. CHEST: Clear to auscultation. CARDIOVASCULAR: Irregular rhythm. No significant murmur. ABDOMEN: Soft. EXTREMITIES: Had no pitting edema. Dorsalis pedis pulse 1+ bilaterally. SKIN: Warm, dry. NEUROLOGIC: Nonfocal. LABORATORY DATA: Her ECG does not appear to be in her chart at this time. On the monitor, she appears to be in atrial fibrillation. Her workup in the Emergency Room, she had a portable chest x-ray, normal heart size, clear lung steel. She had an echocardiogram today that showed ejection fraction 60%, left atrial enlargement, mild mitral and moderate tricuspid insufficiency with moderate pulmonary hypertension. Her lab work, sodium 143, BUN 33, creatinine 1.4. In the past, she has had creatinine as high as 2.0. Her BNP 3320. TSH 3.4. White blood cell count 6.8, hemoglobin 10.9, hematocrit 33. IMPRESSION AND RECOMMENDATIONS: 1. Permanent atrial fibrillation. Rate controlled. Suspect she has sick sinus syndrome. The patient has been on anticoagulant Eliquis. I would recommend decreasing to 2.5 twice day because of chronic kidney disease. 2. Lightheadedness. Reason unclear. The patient has been on an NIRAJ inhibitor. Blood pressure noted to be elevated. I would consider adding clonidine. 3. Chronic kidney disease. 4. Diabetes. 5. Chronic anemia. The patient had previous GI workup in the past. 6. Previous esophageal dilatation required. <ELECTRONICALLY SIGNED> By: Jeramie Rdz MD, [facility] 01/13/19 1553 1554 [id number] Rdz MD, FAC /nt
[2019-01-13 15:57] VITALS: BP 134/50
--- NOTE | 2019-01-13 15:57 | CARDNUC ---
[place] [address] CARDIAC NUCLEAR IMAGING REPORT Name: CLIFTON SOTO Room: [address] IN .R.#: [id number] Admission: 01/12/19 Attend Phys: Lj Garcia, Discharge: Date of : 39 Date of Service: 01/13/19 1556 Report #: [id number] THIS REPORT FOR: //name// APPROVED REPORT Study performed: 01/13/2019 11:37:53 Exam: Nuclear Stress Test NM Tech:COSTA Barahona Ht: 5 ft 4 in Wt: 205 lbs BSA: 1.98 m2 BMI: 35.18 Stress Test Details Stress Test: Pharmacologic stress testing performed using 0.4 mg of regadenoson per 5 mL given IV over 10 seconds. HR Resting HR: 56 bpm Max Heart Rate (APMHR): 139 bpm Max HR Achieved: 83 bpm Target HR (85% APMHR): 118 bpm % of APMHR: 59 Recovery HR: 62 bpm HR response to stress: Normal HR response to stress BP Resting BP: 169/91 mmHg Max BP: 158/62 mmHg BP response to stress: normal ECG Resting ECG: nsr Stress ECG: nsr ST Change: none Arrhythmia: none Recovery ECG: nsr Recovery ST Change: none Recovery Arrhythmia: none Clinical Stress Symptoms: None Stress ECG Conclusion negative ecg NM EXAM: Myocardial Perfusion REST/[place] [address] CARDIAC NUCLEAR IMAGING REPORT Name: CLIFTON SOTO Room: [address]#: [id number] Admission: 01/12/19 Attend Phys: Lj Garcia, Discharge: Date of : 39 Date of Service: 01/13/19 1556 Report #: [id number] Imaging Protocol: Rest Tc-99m/Stress Tc-99m 2 days Resting Data Rest SPECT myocardial perfusion imaging was performed in supine position 30 minutes following the intravenous injection of 38.0 mCi of Tc-99m Sestamibi. Time of rest injection: 1430 Date: 01/12/2019 The images were gated to evaluate regional wall motion and calculate left ventricular ejection fraction. Administration Route: IV Administration Site: Left AC Pharmacologic Stress Pharmacologic stress test was performed by injecting Regadenoson 0.4 mg IV push followed by the intravenous injection of 39.4 mCi of Tc-99m Sestamibi. Time of stress injection: 1130 Date: 01/13/2019 Administration Route: IV Administration Site: Left AC Gated Stress SPECT was performed 40 minutes after stress injection. The images were gated to evaluate regional wall motion and calculate left ventricular ejection fraction. Study Quality Study: Good Artifact: No artifact Study Data At rest, the left ventricular ejection fraction was 71%.. Post stress, the left ventricular ejection was 77%.. SSS: 6 SRS: 6 SDS: 0 TID = 0.88. Perfusion Review of rest data reveals normal perfusion, without perfusion defects.Imaging obtained following vasodilator stress demonstrate a similar, uniform uptake of tracer without defects. Prone imaging was normal. LVEDV is normal.No segental wall motion abnormality seen. Wall Motion [place] [address] CARDIAC NUCLEAR IMAGING REPORT Name: CLIFTON SOTO Room: [address] IN [facility].#: [id number] Admission: 01/12/19 Attend Phys: Lj Garcia, Discharge: Date of : 39 Date of Service: 01/13/19 1556 Report #: [id number] Nuclear Conclusion ECG Findings: negative for ischemia Clinical Findings: negative for ischemia Nuclear Findings: negative for ischemia Exercise Capacity: not assessed Left Ventricular Function: normal Risk Study: low Negative perfusion nuclear stress test for ischemia/infarct. <Conclusion> negative ecg <ELECTRONICALLY SIGNED> By: Kevin Sandoval MD, [facility] 01/13/19 1556 1556 1556 Kevin Sandoval MD, FACC /INF
== END 2019-01-13 16:40 | disposition home or self-care (01) | DRG 305 ==
LOC: M.ERS 23:07 → M.2W 01-12 00:54 → M.TBA-ER 01-12 00:54 → M.2W 01-12 01:53
PROVIDERS: Internal Medicine; Internal Medicine Cardiovascular Disease; Personal Emergency Response Attendant; ADMIT Internal Medicine
DX: I16.0 Hypertensive urgency (principal); D68.69 Other thrombophilia; K21.9 Gastro-esophageal reflux disease without esophagitis; E03.9 Hypothyroidism, unspecified; D50.9 Iron deficiency anemia, unspecified; I48.2 Chronic atrial fibrillation; N28.1 Cyst of kidney, acquired; M19.90 Unspecified osteoarthritis, unspecified site; E78.5 Hyperlipidemia, unspecified; E11.43 Type 2 diabetes mellitus with diabetic autonomic (poly)neuropathy; K31.84 Gastroparesis; I12.9 Hypertensive chronic kidney disease with stage 1 through stage 4 chronic kidney disease, or unspecified chronic kidney disease; E11.22 Type 2 diabetes mellitus with diabetic chronic kidney disease; N18.9 Chronic kidney disease, unspecified; Z79.899 Other long term (current) drug therapy; Z88.1 Allergy status to other antibiotic agents; Z79.2 Long term (current) use of antibiotics; Z88.5 Allergy status to narcotic agent; Z88.8 Allergy status to other drugs, medicaments and biological substances; Z98.84 Bariatric surgery status; Z79.01 Long term (current) use of anticoagulants; Z90.49 Acquired absence of other specified parts of digestive tract; Z90.710 Acquired absence of both cervix and uterus

== ENCOUNTER 2019-09-28 10:39 | Emergency (ER) | payer MEDICARE, OTHER ==
[~2019-09-28] VITALS: Ht 162.6 cm; Wt 94.8 kg
[~2019-09-28 10:39] MED LIST changes: +ALIGN10.5 MG PO; +CLONIDINE0.1 PO; +ONDANSETRON HCL4 M2 PO; +PANTOPRAZOLE SO40 M1 PO; +RANITIDINE 150150 M1 PO; +ZESTRIL20 MG PO
[2019-09-28] MEDS ORDERED: DOXYCYCLINE 10100 MG PO (11:09)
[2019-09-28 11:32] VITALS: BP 141/67
== END 2019-09-28 11:33 | disposition home or self-care (01) ==
LOC: M.ERS 10:39
DX: S81.812A Laceration without foreign body, left lower leg, initial encounter (principal); I48.91 Unspecified atrial fibrillation; I10 Essential (primary) hypertension; M19.90 Unspecified osteoarthritis, unspecified site; E03.9 Hypothyroidism, unspecified; E11.43 Type 2 diabetes mellitus with diabetic autonomic (poly)neuropathy; K31.84 Gastroparesis; Z88.1 Allergy status to other antibiotic agents; Z88.5 Allergy status to narcotic agent; Z90.710 Acquired absence of both cervix and uterus; Z88.8 Allergy status to other drugs, medicaments and biological substances; Z90.49 Acquired absence of other specified parts of digestive tract; Z96.653 Presence of artificial knee joint, bilateral; W26.8XXA Contact with other sharp object(s), not elsewhere classified, initial encounter; Y93.89 Activity, other specified; Y92.89 Other specified places as the place of occurrence of the external cause; Y99.8 Other external cause status

== ENCOUNTER → 2019-10-20 | Outpatient (CLI) | payer MEDICARE, OTHER ==
[~2019-10-20] MED LIST changes: +DOXYCYCLINE 10100 MG PO
== END ==
LOC: M.WC 08:00
DX: E11.622 Type 2 diabetes mellitus with other skin ulcer (principal); L97.825 Non-pressure chronic ulcer of other part of left lower leg with muscle involvement without evidence of necrosis; S81.802A Unspecified open wound, left lower leg, initial encounter; E78.5 Hyperlipidemia, unspecified; E03.9 Hypothyroidism, unspecified; I10 Essential (primary) hypertension; I87.2 Venous insufficiency (chronic) (peripheral); I48.91 Unspecified atrial fibrillation; G47.30 Sleep apnea, unspecified; M19.90 Unspecified osteoarthritis, unspecified site; F41.9 Anxiety disorder, unspecified; Z90.49 Acquired absence of other specified parts of digestive tract; Z98.49 Cataract extraction status, unspecified eye; V49.9XXA Car occupant (driver) (passenger) injured in unspecified traffic accident, initial encounter; Y93.89 Activity, other specified; Y92.89 Other specified places as the place of occurrence of the external cause; Y99.8 Other external cause status

== ENCOUNTER → 2019-10-23 | Outpatient (CLI) | payer MEDICARE, OTHER | LOC: M.WC 05:15 | DX: E11.622 Type 2 diabetes mellitus with other skin ulcer (principal); L97.821 Non-pressure chronic ulcer of other part of left lower leg limited to breakdown of skin; S81.802D Unspecified open wound, left lower leg, subsequent encounter; I87.2 Venous insufficiency (chronic) (peripheral); I10 Essential (primary) hypertension; I48.91 Unspecified atrial fibrillation; G47.30 Sleep apnea, unspecified; E78.5 Hyperlipidemia, unspecified; E03.9 Hypothyroidism, unspecified; M19.90 Unspecified osteoarthritis, unspecified site; F41.9 Anxiety disorder, unspecified; Z90.49 Acquired absence of other specified parts of digestive tract; Z98.49 Cataract extraction status, unspecified eye; W22.8XXD Striking against or struck by other objects, subsequent encounter ==

== ENCOUNTER → 2019-10-27 | Outpatient (CLI) | payer MEDICARE, OTHER | LOC: M.WC 03:18 | DX: E11.622 Type 2 diabetes mellitus with other skin ulcer (principal); L97.821 Non-pressure chronic ulcer of other part of left lower leg limited to breakdown of skin; S81.802D Unspecified open wound, left lower leg, subsequent encounter; I87.2 Venous insufficiency (chronic) (peripheral); E78.5 Hyperlipidemia, unspecified; M19.90 Unspecified osteoarthritis, unspecified site; E03.9 Hypothyroidism, unspecified; I48.91 Unspecified atrial fibrillation; G47.30 Sleep apnea, unspecified; E11.22 Type 2 diabetes mellitus with diabetic chronic kidney disease; I12.9 Hypertensive chronic kidney disease with stage 1 through stage 4 chronic kidney disease, or unspecified chronic kidney disease; N18.3 Chronic kidney disease, stage 3 (moderate); F41.9 Anxiety disorder, unspecified; Z79.84 Long term (current) use of oral hypoglycemic drugs; Z79.82 Long term (current) use of aspirin; X58.XXXD Exposure to other specified factors, subsequent encounter ==

== ENCOUNTER → 2019-10-30 | Outpatient (CLI) | payer MEDICARE, OTHER | LOC: M.WC 03:59 | DX: E11.622 Type 2 diabetes mellitus with other skin ulcer (principal); L97.821 Non-pressure chronic ulcer of other part of left lower leg limited to breakdown of skin; S81.802D Unspecified open wound, left lower leg, subsequent encounter; E78.5 Hyperlipidemia, unspecified; E03.9 Hypothyroidism, unspecified; G47.30 Sleep apnea, unspecified; I87.2 Venous insufficiency (chronic) (peripheral); I10 Essential (primary) hypertension; I48.91 Unspecified atrial fibrillation; M19.90 Unspecified osteoarthritis, unspecified site; F41.9 Anxiety disorder, unspecified; W22.8XXD Striking against or struck by other objects, subsequent encounter ==

== ENCOUNTER → 2019-11-03 | Outpatient (CLI) | payer MEDICARE, OTHER | LOC: M.WC 04:35 | DX: E11.622 Type 2 diabetes mellitus with other skin ulcer (principal); L97.822 Non-pressure chronic ulcer of other part of left lower leg with fat layer exposed; S81.802D Unspecified open wound, left lower leg, subsequent encounter; E78.5 Hyperlipidemia, unspecified; E03.9 Hypothyroidism, unspecified; E66.9 Obesity, unspecified; I10 Essential (primary) hypertension; I48.91 Unspecified atrial fibrillation; G47.30 Sleep apnea, unspecified; M19.90 Unspecified osteoarthritis, unspecified site; F41.9 Anxiety disorder, unspecified; Z68.35 Body mass index [BMI] 35.0-35.9, adult; W22.8XXD Striking against or struck by other objects, subsequent encounter ==

== ENCOUNTER → 2019-11-06 | Outpatient (CLI) | payer MEDICARE, OTHER | LOC: M.WC 03:38 | DX: E11.622 Type 2 diabetes mellitus with other skin ulcer (principal); L97.821 Non-pressure chronic ulcer of other part of left lower leg limited to breakdown of skin; S81.802D Unspecified open wound, left lower leg, subsequent encounter; E78.5 Hyperlipidemia, unspecified; E03.9 Hypothyroidism, unspecified; E66.9 Obesity, unspecified; G47.30 Sleep apnea, unspecified; I10 Essential (primary) hypertension; I87.2 Venous insufficiency (chronic) (peripheral); I48.91 Unspecified atrial fibrillation; M19.90 Unspecified osteoarthritis, unspecified site; F41.9 Anxiety disorder, unspecified; Z68.35 Body mass index [BMI] 35.0-35.9, adult; W22.8XXD Striking against or struck by other objects, subsequent encounter ==

== ENCOUNTER → 2019-11-10 | Outpatient (CLI) | payer MEDICARE, OTHER | LOC: M.WC 03:56 | DX: E11.622 Type 2 diabetes mellitus with other skin ulcer (principal); L97.822 Non-pressure chronic ulcer of other part of left lower leg with fat layer exposed; S81.802D Unspecified open wound, left lower leg, subsequent encounter; E78.5 Hyperlipidemia, unspecified; E03.9 Hypothyroidism, unspecified; G47.30 Sleep apnea, unspecified; I10 Essential (primary) hypertension; I87.2 Venous insufficiency (chronic) (peripheral); I48.91 Unspecified atrial fibrillation; M19.90 Unspecified osteoarthritis, unspecified site; F41.9 Anxiety disorder, unspecified; W22.8XXD Striking against or struck by other objects, subsequent encounter ==

== ENCOUNTER → 2019-11-13 | Outpatient (CLI) | payer MEDICARE, OTHER | LOC: M.WC 04:05 | DX: E11.622 Type 2 diabetes mellitus with other skin ulcer (principal); L97.821 Non-pressure chronic ulcer of other part of left lower leg limited to breakdown of skin; S81.802D Unspecified open wound, left lower leg, subsequent encounter; E78.5 Hyperlipidemia, unspecified; E03.9 Hypothyroidism, unspecified; G47.30 Sleep apnea, unspecified; I10 Essential (primary) hypertension; I87.2 Venous insufficiency (chronic) (peripheral); I48.91 Unspecified atrial fibrillation; M19.90 Unspecified osteoarthritis, unspecified site; F41.9 Anxiety disorder, unspecified; Z68.35 Body mass index [BMI] 35.0-35.9, adult; W22.8XXD Striking against or struck by other objects, subsequent encounter ==

== ENCOUNTER → 2019-11-17 | Outpatient (CLI) | payer MEDICARE, OTHER | LOC: M.WC 04:28 | DX: E11.622 Type 2 diabetes mellitus with other skin ulcer (principal); L97.821 Non-pressure chronic ulcer of other part of left lower leg limited to breakdown of skin; S81.802D Unspecified open wound, left lower leg, subsequent encounter; E78.5 Hyperlipidemia, unspecified; E03.9 Hypothyroidism, unspecified; I10 Essential (primary) hypertension; I87.2 Venous insufficiency (chronic) (peripheral); I48.91 Unspecified atrial fibrillation; G47.30 Sleep apnea, unspecified; M19.90 Unspecified osteoarthritis, unspecified site; F41.9 Anxiety disorder, unspecified; W22.8XXD Striking against or struck by other objects, subsequent encounter ==

== ENCOUNTER → 2019-11-20 | Outpatient (CLI) | payer MEDICARE, OTHER | LOC: M.ULTRA 03:44 | DX: E11.622 Type 2 diabetes mellitus with other skin ulcer (principal); L97.821 Non-pressure chronic ulcer of other part of left lower leg limited to breakdown of skin; S81.802D Unspecified open wound, left lower leg, subsequent encounter; I10 Essential (primary) hypertension; I87.2 Venous insufficiency (chronic) (peripheral); I48.91 Unspecified atrial fibrillation; E78.5 Hyperlipidemia, unspecified; E03.9 Hypothyroidism, unspecified; G47.30 Sleep apnea, unspecified; M19.90 Unspecified osteoarthritis, unspecified site; F41.9 Anxiety disorder, unspecified; W22.8XXD Striking against or struck by other objects, subsequent encounter ==

== ENCOUNTER → 2019-11-24 | Outpatient (CLI) | payer MEDICARE, OTHER | LOC: M.WC 04:38 | DX: E11.622 Type 2 diabetes mellitus with other skin ulcer (principal); L97.521 Non-pressure chronic ulcer of other part of left foot limited to breakdown of skin; S81.802D Unspecified open wound, left lower leg, subsequent encounter; E78.5 Hyperlipidemia, unspecified; E03.9 Hypothyroidism, unspecified; I10 Essential (primary) hypertension; I87.2 Venous insufficiency (chronic) (peripheral); I48.91 Unspecified atrial fibrillation; G47.30 Sleep apnea, unspecified; M19.90 Unspecified osteoarthritis, unspecified site; F41.9 Anxiety disorder, unspecified; W22.8XXD Striking against or struck by other objects, subsequent encounter ==

== ENCOUNTER → 2019-11-27 | Outpatient (CLI) | payer MEDICARE, OTHER | LOC: M.WC 01:59 | DX: E11.622 Type 2 diabetes mellitus with other skin ulcer (principal); L97.821 Non-pressure chronic ulcer of other part of left lower leg limited to breakdown of skin; S81.802D Unspecified open wound, left lower leg, subsequent encounter; E78.5 Hyperlipidemia, unspecified; E03.9 Hypothyroidism, unspecified; G47.30 Sleep apnea, unspecified; I10 Essential (primary) hypertension; I87.2 Venous insufficiency (chronic) (peripheral); I48.91 Unspecified atrial fibrillation; M19.90 Unspecified osteoarthritis, unspecified site; F41.9 Anxiety disorder, unspecified; W22.8XXD Striking against or struck by other objects, subsequent encounter ==

== ENCOUNTER → 2019-12-01 | Outpatient (CLI) | payer MEDICARE, OTHER | LOC: M.WC 03:48 | DX: E11.622 Type 2 diabetes mellitus with other skin ulcer (principal); L97.821 Non-pressure chronic ulcer of other part of left lower leg limited to breakdown of skin; S81.802D Unspecified open wound, left lower leg, subsequent encounter; E03.9 Hypothyroidism, unspecified; E78.5 Hyperlipidemia, unspecified; G47.30 Sleep apnea, unspecified; I87.2 Venous insufficiency (chronic) (peripheral); I48.91 Unspecified atrial fibrillation; I10 Essential (primary) hypertension; M19.90 Unspecified osteoarthritis, unspecified site; F41.9 Anxiety disorder, unspecified; W22.8XXD Striking against or struck by other objects, subsequent encounter ==

== ENCOUNTER → 2019-12-08 | Outpatient (CLI) | payer MEDICARE, OTHER | LOC: M.WC 04:23 | DX: E11.622 Type 2 diabetes mellitus with other skin ulcer (principal); L97.821 Non-pressure chronic ulcer of other part of left lower leg limited to breakdown of skin; S81.802D Unspecified open wound, left lower leg, subsequent encounter; E78.5 Hyperlipidemia, unspecified; E03.9 Hypothyroidism, unspecified; I87.2 Venous insufficiency (chronic) (peripheral); I10 Essential (primary) hypertension; I48.91 Unspecified atrial fibrillation; G47.30 Sleep apnea, unspecified; M19.90 Unspecified osteoarthritis, unspecified site; F41.9 Anxiety disorder, unspecified; W22.8XXD Striking against or struck by other objects, subsequent encounter ==

== ENCOUNTER → 2019-12-11 | Outpatient (CLI) | payer MEDICARE, OTHER | LOC: M.WC 02:29 | DX: E11.622 Type 2 diabetes mellitus with other skin ulcer (principal); L97.821 Non-pressure chronic ulcer of other part of left lower leg limited to breakdown of skin; S81.802D Unspecified open wound, left lower leg, subsequent encounter; E78.5 Hyperlipidemia, unspecified; E03.9 Hypothyroidism, unspecified; I87.2 Venous insufficiency (chronic) (peripheral); I10 Essential (primary) hypertension; I48.91 Unspecified atrial fibrillation; G47.30 Sleep apnea, unspecified; M19.90 Unspecified osteoarthritis, unspecified site; F41.9 Anxiety disorder, unspecified; W22.8XXD Striking against or struck by other objects, subsequent encounter ==

== ENCOUNTER → 2019-12-15 | Outpatient (CLI) | payer MEDICARE, OTHER | LOC: M.WC 04:42 | DX: E11.622 Type 2 diabetes mellitus with other skin ulcer (principal); L97.821 Non-pressure chronic ulcer of other part of left lower leg limited to breakdown of skin; S81.802D Unspecified open wound, left lower leg, subsequent encounter; E03.9 Hypothyroidism, unspecified; E78.5 Hyperlipidemia, unspecified; I87.2 Venous insufficiency (chronic) (peripheral); I10 Essential (primary) hypertension; I48.91 Unspecified atrial fibrillation; G47.30 Sleep apnea, unspecified; M19.90 Unspecified osteoarthritis, unspecified site; F41.9 Anxiety disorder, unspecified; W22.8XXD Striking against or struck by other objects, subsequent encounter ==

== ENCOUNTER → 2019-12-18 | Outpatient (CLI) | payer MEDICARE, OTHER | LOC: M.WC 01:15 | DX: E11.622 Type 2 diabetes mellitus with other skin ulcer (principal); L97.821 Non-pressure chronic ulcer of other part of left lower leg limited to breakdown of skin; S81.802D Unspecified open wound, left lower leg, subsequent encounter; E78.5 Hyperlipidemia, unspecified; E03.9 Hypothyroidism, unspecified; I87.2 Venous insufficiency (chronic) (peripheral); I10 Essential (primary) hypertension; I48.91 Unspecified atrial fibrillation; G47.30 Sleep apnea, unspecified; M19.90 Unspecified osteoarthritis, unspecified site; F41.9 Anxiety disorder, unspecified; W22.8XXD Striking against or struck by other objects, subsequent encounter ==

== ENCOUNTER → 2019-12-22 | Outpatient (CLI) | payer MEDICARE, OTHER | LOC: M.WC 04:51 | DX: E11.622 Type 2 diabetes mellitus with other skin ulcer (principal); L97.822 Non-pressure chronic ulcer of other part of left lower leg with fat layer exposed; S81.802D Unspecified open wound, left lower leg, subsequent encounter; I87.2 Venous insufficiency (chronic) (peripheral); I10 Essential (primary) hypertension; I48.91 Unspecified atrial fibrillation; E78.5 Hyperlipidemia, unspecified; E03.9 Hypothyroidism, unspecified; G47.30 Sleep apnea, unspecified; M19.90 Unspecified osteoarthritis, unspecified site; F41.9 Anxiety disorder, unspecified; W22.8XXD Striking against or struck by other objects, subsequent encounter ==

== ENCOUNTER → 2019-12-25 | Outpatient (CLI) | payer MEDICARE, OTHER | LOC: M.WC 04:29 | PROVIDERS: ATTEND Emergency Medicine Undersea and Hyperbaric Medicine | DX: E11.622 Type 2 diabetes mellitus with other skin ulcer (principal); L97.821 Non-pressure chronic ulcer of other part of left lower leg limited to breakdown of skin; S81.802D Unspecified open wound, left lower leg, subsequent encounter; I87.2 Venous insufficiency (chronic) (peripheral); E11.22 Type 2 diabetes mellitus with diabetic chronic kidney disease; I12.9 Hypertensive chronic kidney disease with stage 1 through stage 4 chronic kidney disease, or unspecified chronic kidney disease; N18.3 Chronic kidney disease, stage 3 (moderate); E78.5 Hyperlipidemia, unspecified; K58.9 Irritable bowel syndrome, unspecified; M19.90 Unspecified osteoarthritis, unspecified site; M47.896 Other spondylosis, lumbar region; E03.9 Hypothyroidism, unspecified; I48.91 Unspecified atrial fibrillation; G47.30 Sleep apnea, unspecified; F41.9 Anxiety disorder, unspecified; X58.XXXD Exposure to other specified factors, subsequent encounter ==

== ENCOUNTER → 2019-12-29 | Outpatient (CLI) | payer MEDICARE, OTHER | LOC: M.WC 01:37 | DX: E11.622 Type 2 diabetes mellitus with other skin ulcer (principal); L97.821 Non-pressure chronic ulcer of other part of left lower leg limited to breakdown of skin; S81.802D Unspecified open wound, left lower leg, subsequent encounter; E78.5 Hyperlipidemia, unspecified; E03.9 Hypothyroidism, unspecified; I87.2 Venous insufficiency (chronic) (peripheral); I10 Essential (primary) hypertension; I48.91 Unspecified atrial fibrillation; G47.30 Sleep apnea, unspecified; M19.90 Unspecified osteoarthritis, unspecified site; F41.9 Anxiety disorder, unspecified; W22.8XXD Striking against or struck by other objects, subsequent encounter ==

== ENCOUNTER → 2020-01-01 | Outpatient (CLI) | payer MEDICARE, OTHER | LOC: M.WC 05:24 | DX: E11.622 Type 2 diabetes mellitus with other skin ulcer (principal); L97.821 Non-pressure chronic ulcer of other part of left lower leg limited to breakdown of skin; S81.802D Unspecified open wound, left lower leg, subsequent encounter; I87.2 Venous insufficiency (chronic) (peripheral); E78.5 Hyperlipidemia, unspecified; K58.9 Irritable bowel syndrome, unspecified; M19.90 Unspecified osteoarthritis, unspecified site; M47.816 Spondylosis without myelopathy or radiculopathy, lumbar region; E03.9 Hypothyroidism, unspecified; E11.22 Type 2 diabetes mellitus with diabetic chronic kidney disease; I12.9 Hypertensive chronic kidney disease with stage 1 through stage 4 chronic kidney disease, or unspecified chronic kidney disease; N18.3 Chronic kidney disease, stage 3 (moderate); I48.91 Unspecified atrial fibrillation; G47.30 Sleep apnea, unspecified; F41.9 Anxiety disorder, unspecified; X58.XXXD Exposure to other specified factors, subsequent encounter ==

== ENCOUNTER → 2020-01-05 | Outpatient (CLI) | payer MEDICARE, OTHER | LOC: M.WC 04:25 | DX: E11.622 Type 2 diabetes mellitus with other skin ulcer (principal); L97.821 Non-pressure chronic ulcer of other part of left lower leg limited to breakdown of skin; S81.802D Unspecified open wound, left lower leg, subsequent encounter; I87.2 Venous insufficiency (chronic) (peripheral); I48.91 Unspecified atrial fibrillation; I10 Essential (primary) hypertension; E78.5 Hyperlipidemia, unspecified; E03.9 Hypothyroidism, unspecified; G47.30 Sleep apnea, unspecified; M19.90 Unspecified osteoarthritis, unspecified site; F41.9 Anxiety disorder, unspecified; W22.8XXD Striking against or struck by other objects, subsequent encounter ==

== ENCOUNTER → 2020-01-08 | Outpatient (CLI) | payer MEDICARE, OTHER | LOC: M.WC 01-07 15:00 | DX: E11.622 Type 2 diabetes mellitus with other skin ulcer (principal); L97.821 Non-pressure chronic ulcer of other part of left lower leg limited to breakdown of skin; S81.802D Unspecified open wound, left lower leg, subsequent encounter; I87.2 Venous insufficiency (chronic) (peripheral); I10 Essential (primary) hypertension; E78.5 Hyperlipidemia, unspecified; K58.9 Irritable bowel syndrome, unspecified; M19.90 Unspecified osteoarthritis, unspecified site; M47.816 Spondylosis without myelopathy or radiculopathy, lumbar region; E03.9 Hypothyroidism, unspecified; I48.91 Unspecified atrial fibrillation; G47.30 Sleep apnea, unspecified; F41.9 Anxiety disorder, unspecified; X58.XXXD Exposure to other specified factors, subsequent encounter ==

== ENCOUNTER → 2020-01-12 | Outpatient (CLI) | payer MEDICARE, OTHER | LOC: M.WC 04:32 | DX: E11.622 Type 2 diabetes mellitus with other skin ulcer (principal); L97.821 Non-pressure chronic ulcer of other part of left lower leg limited to breakdown of skin; S81.802D Unspecified open wound, left lower leg, subsequent encounter; E78.5 Hyperlipidemia, unspecified; E03.9 Hypothyroidism, unspecified; I87.2 Venous insufficiency (chronic) (peripheral); I10 Essential (primary) hypertension; I48.91 Unspecified atrial fibrillation; G47.30 Sleep apnea, unspecified; M19.90 Unspecified osteoarthritis, unspecified site; F41.9 Anxiety disorder, unspecified; W22.8XXD Striking against or struck by other objects, subsequent encounter ==

== ENCOUNTER → 2020-01-15 | Outpatient (CLI) | payer MEDICARE, OTHER | LOC: M.WC 03:44 | DX: E11.622 Type 2 diabetes mellitus with other skin ulcer (principal); L97.821 Non-pressure chronic ulcer of other part of left lower leg limited to breakdown of skin; S81.802D Unspecified open wound, left lower leg, subsequent encounter; I87.2 Venous insufficiency (chronic) (peripheral); I10 Essential (primary) hypertension; I48.91 Unspecified atrial fibrillation; E78.5 Hyperlipidemia, unspecified; E03.9 Hypothyroidism, unspecified; G47.30 Sleep apnea, unspecified; M19.90 Unspecified osteoarthritis, unspecified site; F41.9 Anxiety disorder, unspecified; W22.8XXD Striking against or struck by other objects, subsequent encounter ==

== ENCOUNTER → 2020-01-19 | Outpatient (CLI) | payer MEDICARE, OTHER | LOC: M.WC 03:05 | DX: E11.622 Type 2 diabetes mellitus with other skin ulcer (principal); L97.821 Non-pressure chronic ulcer of other part of left lower leg limited to breakdown of skin; S81.802D Unspecified open wound, left lower leg, subsequent encounter; E78.5 Hyperlipidemia, unspecified; E03.9 Hypothyroidism, unspecified; G47.30 Sleep apnea, unspecified; I87.2 Venous insufficiency (chronic) (peripheral); I10 Essential (primary) hypertension; I48.91 Unspecified atrial fibrillation; M19.90 Unspecified osteoarthritis, unspecified site; F41.9 Anxiety disorder, unspecified; W22.8XXD Striking against or struck by other objects, subsequent encounter ==

== ENCOUNTER → 2020-01-22 | Outpatient (CLI) | payer MEDICARE, OTHER | LOC: M.WC 05:32 | DX: E11.622 Type 2 diabetes mellitus with other skin ulcer (principal); L97.821 Non-pressure chronic ulcer of other part of left lower leg limited to breakdown of skin; S81.802D Unspecified open wound, left lower leg, subsequent encounter; I10 Essential (primary) hypertension; I87.2 Venous insufficiency (chronic) (peripheral); E78.5 Hyperlipidemia, unspecified; M19.90 Unspecified osteoarthritis, unspecified site; M47.816 Spondylosis without myelopathy or radiculopathy, lumbar region; E03.9 Hypothyroidism, unspecified; I48.91 Unspecified atrial fibrillation; G47.30 Sleep apnea, unspecified; F41.9 Anxiety disorder, unspecified; X58.XXXD Exposure to other specified factors, subsequent encounter ==

== ENCOUNTER → 2020-01-26 | Outpatient (CLI) | payer MEDICARE, OTHER | LOC: M.WC 05:20 | DX: E11.622 Type 2 diabetes mellitus with other skin ulcer (principal); L97.821 Non-pressure chronic ulcer of other part of left lower leg limited to breakdown of skin; S81.802D Unspecified open wound, left lower leg, subsequent encounter; E78.5 Hyperlipidemia, unspecified; E03.9 Hypothyroidism, unspecified; G47.30 Sleep apnea, unspecified; I10 Essential (primary) hypertension; I87.2 Venous insufficiency (chronic) (peripheral); I48.91 Unspecified atrial fibrillation; M19.90 Unspecified osteoarthritis, unspecified site; F41.9 Anxiety disorder, unspecified; W22.8XXD Striking against or struck by other objects, subsequent encounter ==

== ENCOUNTER → 2020-02-02 | Outpatient (CLI) | payer MEDICARE, OTHER | LOC: M.WC 04:54 | DX: E11.622 Type 2 diabetes mellitus with other skin ulcer (principal); L97.821 Non-pressure chronic ulcer of other part of left lower leg limited to breakdown of skin; S81.802D Unspecified open wound, left lower leg, subsequent encounter; E78.5 Hyperlipidemia, unspecified; E03.9 Hypothyroidism, unspecified; G47.30 Sleep apnea, unspecified; I10 Essential (primary) hypertension; I87.2 Venous insufficiency (chronic) (peripheral); I48.91 Unspecified atrial fibrillation; M19.90 Unspecified osteoarthritis, unspecified site; F41.9 Anxiety disorder, unspecified; W22.8XXD Striking against or struck by other objects, subsequent encounter ==

== ENCOUNTER → 2020-02-16 | Outpatient (CLI) | payer MEDICARE, OTHER | LOC: M.WC 04:45 | DX: E11.622 Type 2 diabetes mellitus with other skin ulcer (principal); L97.821 Non-pressure chronic ulcer of other part of left lower leg limited to breakdown of skin; S81.802D Unspecified open wound, left lower leg, subsequent encounter; E78.5 Hyperlipidemia, unspecified; E03.9 Hypothyroidism, unspecified; G47.30 Sleep apnea, unspecified; I10 Essential (primary) hypertension; I87.2 Venous insufficiency (chronic) (peripheral); I48.91 Unspecified atrial fibrillation; M19.90 Unspecified osteoarthritis, unspecified site; F41.9 Anxiety disorder, unspecified; W22.8XXD Striking against or struck by other objects, subsequent encounter ==

== ENCOUNTER → 2020-03-01 | Outpatient (CLI) | payer MEDICARE, OTHER | LOC: M.WC 03:52 | PROVIDERS: ATTEND Emergency Medicine Undersea and Hyperbaric Medicine | DX: E11.622 Type 2 diabetes mellitus with other skin ulcer (principal); L97.828 Non-pressure chronic ulcer of other part of left lower leg with other specified severity; S81.802D Unspecified open wound, left lower leg, subsequent encounter; E78.5 Hyperlipidemia, unspecified; E03.9 Hypothyroidism, unspecified; G47.30 Sleep apnea, unspecified; I87.2 Venous insufficiency (chronic) (peripheral); I10 Essential (primary) hypertension; I48.91 Unspecified atrial fibrillation; M19.90 Unspecified osteoarthritis, unspecified site; F41.9 Anxiety disorder, unspecified; W22.8XXD Striking against or struck by other objects, subsequent encounter ==

== ENCOUNTER 2021-06-05 03:50 | Emergency (ER) | payer MEDICARE, OTHER ==
[~2021-06-05] VITALS: Ht 162.6 cm; Wt 92.1 kg
[2021-06-05] MEDS ORDERED: FLAGYL500 M1 PO (04:14)
[2021-06-05] MEDS ORDERED: BACTRIM DS TAB1 EAC1 PO (04:15)
[2021-06-05 05:05] LABS: ABSOLUTE EOSINOPHILS 0.2 thou/uL (0.0-0.7); ABSOLUTE LYMPHOCYTES 1.2 thou/uL (0.8-5.3); ABSOLUTE MONOCYTES 0.5 thou/uL (0.0-1.2); ABSOLUTE NEUTROPHILS 2.8 thou/uL (1.6-8.1); BASOPHILS 0.7 %; HEMATOCRIT 29.9 % (37.0-47.0); LYMPHOCYTES 25.1 %; MCH 28.9 pg (26.0-34.0); MCHC 33.4 g/dL (28.0-37.0); MCV 86.3 fL (80.0-100.0); MONOCYTES 10.1 %; MPV 8.1 fl. (7.2-11.1); NUCLEATED RBCS 0 /100WBC; PLATELET COUNT* 159 thou/uL (150-400); POLYS 60.1 %; RBC 3.46 mil/uL (4.20-5.00); RDW-CV 14.2 % (10.5-14.5); WBC 4.6 thou/uL (4.0-11.0)
[2021-06-05 05:08] LABS: CALCIUM 8.7 mg/dL (8.5-10.1); CREATININE 2.6 mg/dL (0.6-1.3); POTASSIUM 3.7 mmol/L (3.5-5.1)
[2021-06-05 05:13] LABS: ALBUMIN 3.8 g/dL (3.4-5.0); TOTAL BILIRUBIN 0.3 mg/dL (<0.1-1.0); TOTAL PROTEIN 6.9 g/dL (6.4-8.2)
[2021-06-05 05:42] LABS: URINE BILIRUBIN NEGATIVE (Negative); URINE BLOOD NEGATIVE (Negative); URINE CLARITY CLEAR; URINE COLOR YELLOW; URINE GLUCOSE-RANDOM NEGATIVE (Negative); URINE KETONES NEGATIVE (Negative); URINE LEUKOCYTES-REFLEX NEGATIVE (Negative); URINE NITRITE-REFLEX NEGATIVE (Negative); URINE PROTEIN NEGATIVE (Negative); URINE SPECIFIC GRAVITY <= 1.005 (1.005-1.030); URINE UROBILINOGEN 0.2 E.U./dl (0.2-1.0)
[2021-06-05] MEDS ORDERED: ARAVA10 MG PO (05:47)
[2021-06-05] MEDS ORDERED: CHLORTHALIDONE25 MG PO (05:47)
[2021-06-05 06:30] VITALS: BP 143/67
--- NOTE | 2021-06-05 11:53 | EKG ---
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
== END 2021-06-05 06:30 | disposition home or self-care (01) ==
LOC: M.ERS 03:50
PROVIDERS: Personal Emergency Response Attendant
DX: R19.7 Diarrhea, unspecified (principal); Z20.822 Contact with and (suspected) exposure to COVID-19; E11.43 Type 2 diabetes mellitus with diabetic autonomic (poly)neuropathy; K31.84 Gastroparesis; I48.91 Unspecified atrial fibrillation; I10 Essential (primary) hypertension; M19.90 Unspecified osteoarthritis, unspecified site; E03.9 Hypothyroidism, unspecified; Z90.710 Acquired absence of both cervix and uterus; Z90.49 Acquired absence of other specified parts of digestive tract; Z79.1 Long term (current) use of non-steroidal anti-inflammatories (NSAID); Z79.899 Other long term (current) drug therapy; Z79.84 Long term (current) use of oral hypoglycemic drugs; Z88.6 Allergy status to analgesic agent; Z88.1 Allergy status to other antibiotic agents; Z88.5 Allergy status to narcotic agent; Z88.8 Allergy status to other drugs, medicaments and biological substances